=== PATIENT | male | born 1995 | race Caucasian/White ===

== ENCOUNTER → 2016-09-05 | Outpatient (CLI) | payer BC | LOC: BMCIMAGING 14:20 | PROVIDERS: ATTEND Family Medicine | DX: S69.91XA Unspecified injury of right wrist, hand and finger(s), initial encounter (principal) ==

== ENCOUNTER 2016-09-07 13:37 | Emergency (ER) | payer BC ==
[2016-09-07 13:52] VITALS: RESP 16; TEMP 98.1
[2016-09-07] MEDS ORDERED: ONDANSETRON 4 MG/2 ML VIAL IVP ONE ×2 (14:33→14:34)
[2016-09-07] MEDS ORDERED: NS 1,000 ML IV ONE (14:33)
[2016-09-07 14:38] LABS: % IMMATURE GRANULYOCYTES 0.4 % (0.0-1.1); ABSOLUTE IMMATURE GRANULOCYTES 0.03 10^3/uL (0.00-0.10); ADD DIFF? NO; ADD MORPH? NO; ADD SCAN? NO; ATYPICAL LYMPHOCYTE FLAG 10 (0-99); FRAGMENT RBC FLAG 0 (0-99); HEMATOCRIT 44.7 % (40.0-51.0); HEMOGLOBIN 15.6 g/dL (13.7-17.5); LEFT SHIFT FLG 0 (0-99); LIPEMIA HEMOLYSIS FLAG 90 (0-99); MEAN CELL HEMOGLOBIN 29.1 pg (27.9-34.1); MEAN CELL HEMOGLOBIN CONCENTR. 34.9 g/dL (32.4-36.7); MEAN CELL VOLUME 83.4 fL (81.5-99.8); MEAN PLATELET VOLUME 9.8 fL (8.7-11.7); PLATELET CLUMPS FLAG 0 (0-99); PLATELET COUNT 280 10^3/uL (150-400); RED BLOOD CELL COUNT 5.36 10^6/uL (4.40-6.38); RED CELL DISTRIBUTION WIDTH 12.1 % (11.5-15.2)
--- NOTE | 2016-09-07 14:39 | EDPHY ---
H & P Smoking Status: Never smoked Time Seen by Provider: 09/07/16 13:49 HPI/ROS: CHIEF COMPLAINT: Abdominal pain HISTORY OF PRESENT ILLNESS: 20-year-old male presents to the emergency department with right lower quadrant abdominal pain and vomiting and diarrhea over the last 2 days. Fever yesterday. He denies recent travel. Denies URI symptoms. Denies trauma. Denies neck or back pain. No known ill contacts. He has vomited 3 times today. He denies melena or blood in his stool. Denies hematemesis. REVIEW OF SYSTEMS: Constitutional: Fever with a T-max of 101 yesterday. Eyes: No double or blurry vision. ENT: No sore throat. Respiratory: No cough, no shortness of breath. Cardiac: No chest pain. Gastrointestinal: Abdominal pain as above. Vomiting and diarrhea. Genitourinary: No dysuria. Musculoskeletal: No neck or back pain. Skin: No rashes. Neurological: No headache. (MaryanaJennifer) Past Medical/Surgical History: Negative (MaryanaJennifer Coles) Social History: Single, originally from [place]. (Gia Mijaresmike Coles) Physical Exam: General Appearance: Alert, no distress. 36.7 Eyes: Pupils equal and round. Extraocular motions are all intact. ENT: Mouth: Mucous membranes moist. Respiratory: No wheezing, rhonchi, or rales, lungs are clear to auscultation. Cardiovascular: Regular rate and rhythm. Gastrointestinal: Abdomen is soft. Tenderness with palpation in the right lower quadrant overlying McBurney's point. There is no rebound, guarding or masses noted. No CVA tenderness bilaterally. Neurological: Alert and oriented x 3, cranial nerves II through XII grossly intact Skin: Warm and dry, no rashes. Musculoskeletal: Nontender to palpate along the cervical, thoracic or lumbar spine. Neck is supple. Extremities: Full range of motion and no peripheral edema. Psychiatric: Patient is oriented X 3, there is no agitation. (Gia Mijaresrina Sanket) Constitutional: Initial Vital Signs Temperature (C) 36.7 C 09/07/16 13:50 Heart Rate 78 09/07/16 13:50 Respiratory Rate 16 09/07/16 13:50 Blood Pressure 134/82 H 09/07/16 13:50 O2 Sat (%) 98 09/07/16 13:50 O2 Delivery Mode Room Air Allergies/Adverse Reactions: No Known Allergies Allergy (Unverified 09/07/16 13:53) Home Medications: Medication Instructions Recorded Ondansetron Odt [Zofran Odt] 4 mg PO Q4PRN PRN #5 tab 09/07/16 Medical Decision Making - Diagnostics Imaging: CT imaging of the abdomen pelvis reveals normal appearing appendix. This is reported to me by Dr. Sumanth Ring. (Jennifer Mijares) ED Course/Re-evaluation: 20-year-old male presents to the emergency department by private vehicle with abdominal pain and vomiting and diarrhea. On examination the patient has isolated pain to the right lower quadrant. He had a fever yesterday of 101. No chest pain or difficulty breathing. No back pain. The pros and cons of CT imaging of the abdomen and pelvis including radiation exposure were discussed with the patient. Patient agrees with CT scan given his localized pain history of fever. CT imaging of the abdomen pelvis reveals a normal appearing appendix. Laboratory studies are within normal limits. Chemistries are normal. Patient was given IV normal saline as well as IV Zofran. He was feeling much better. He is tolerating p.o. fluids upon discharge is comfortable being discharged home. (Jennifer Mijares) I did not see this patient while he was in the emergency department. However his care was discussed with the PA while patient was in the department. Treatment plan (Yovany Zapien) Differential Diagnosis: Including but not limited to viral gastroenteritis, acute appendicitis, urinary tract infection, pyelonephritis, kidney stone, dehydration (Jennifer Mijares) - Data Points Laboratory Results: Laboratory Results 09/07/16 14:04 09/07/16 14:04 Medications Given: Discontinued Medications Sodium Chloride (Ns) 1,000 mls @ 0 mls/hr IV ONCE ONE PRN Reason: Wide Open Stop: 09/07/16 14:34 Last Admin: 09/07/16 14:35 Dose: 1,000 mls Ondansetron HCl (Zofran) 4 mg IVP EDNOW ONE Stop: 09/07/16 14:34 Last Admin: 09/07/16 14:46 Dose: Not Given Ondansetron HCl (Zofran) 4 mg IVP EDNOW ONE Stop: 09/07/16 14:35 Last Admin: 09/07/16 14:40 Dose: 4 mg Departure - Departure Disposition: Home, Routine, Self-Care Clinical Impression: Acute gastroenteritis, Abdominal pain Condition: Good Instructions: Gastroenteritis (ED), Acute Abdominal Pain (ED) Additional Instructions: Clear liquids and slowly advance diet as tolerated. Zofran as needed for nausea. Abdominal Pain: Return to the Emergency Department immediately for increasing pain, fever, vomiting, or if not completely better in 8-12 hours. Referrals: La Dyson MD [Medical Doctor] - 1 day, if not improved (Primary care provider business operations manager) Stand Alone Forms: Work Excuse Prescriptions: Ondansetron Odt [Zofran Odt] 4 mg PO Q4PRN PRN #5 tab PRN Reason: P.r.n. nausea, vomiting
[2016-09-07 14:45] LABS: ANION GAP 13 mEq/L (8-16); CALCIUM 10.1 mg/dL (8.5-10.4); CARBON DIOXIDE 21 mEq/l (22-31); CHLORIDE 106 mEq/L (97-110); CREATININE 0.8 mg/dL (0.7-1.3); GLOMERULAR FILTRATION RATE > 60; GLUCOSE 90 mg/dL (70-100); POTASSIUM 4.2 mEq/L (3.5-5.2); SODIUM 140 mEq/L (134-144)
[2016-09-07] MEDS ORDERED: IOPAMIDOL (ISOVUE-300) 100 ML BTL IV ONE (15:23)
[2016-09-07 16:22] VITALS: BP 138/78; PULSE 75; O2SAT 99
== END 2016-09-07 16:22 | disposition home or self-care (01) ==
DX: K52.9 Noninfective gastroenteritis and colitis, unspecified (principal)
CPT/HCPCS: 96374; J2405; Q9967